=== PATIENT | female | born 1980 | race Caucasian/White ===

== ENCOUNTER → 2022-12-21 | Outpatient (CLI) | payer BC ==
[~2022-12-21] MED LIST: PROP60TA14 PO; XELJ5TAB PO
[2022-12-21 09:38] VITALS: BP 130/82
== END ==
LOC: M WHCPRO 08:40
PROVIDERS: ATTEND Surgery
DX: C50.212 Malignant neoplasm of upper-inner quadrant of left female breast (principal); R92.8 Other abnormal and inconclusive findings on diagnostic imaging of breast; N63.22 Unspecified lump in the left breast, upper inner quadrant
CPT/HCPCS: 19083; 77065; 88305; G0279

== ENCOUNTER → 2022-12-27 | Outpatient (CLI) | payer BC ==
[~2022-12-27] MED LIST changes: +PROHANCE 279.3MG/ML 15ML VIAL As Ordered ONE
== END ==
LOC: M RAD 15:25
PROVIDERS: ATTEND Surgery
DX: C50.912 Malignant neoplasm of unspecified site of left female breast (principal); R92.8 Other abnormal and inconclusive findings on diagnostic imaging of breast; N60.19 Diffuse cystic mastopathy of unspecified breast
CPT/HCPCS: A9576; C8908

== ENCOUNTER → 2023-01-03 | Outpatient (CLI) | payer BC ==
[~2023-01-03] MED LIST changes: -PROHANCE 279.3MG/ML 15ML VIAL As Ordered ONE
== END ==
LOC: M WHC 13:20
PROVIDERS: ATTEND Surgery
DX: R92.8 Other abnormal and inconclusive findings on diagnostic imaging of breast (principal)

== ENCOUNTER 2023-01-24 06:39 | Observation (INO) | payer BC ==
[~2023-01-24] VITALS: Ht 162.6 cm; Wt 81.8 kg
[~2023-01-24 06:39] MED LIST changes: +BUSP10TA PO; +PAXI20TA30 PO; +[UNRECOGNIZED DRUG - CODE] PO
[2023-01-24] MEDS ORDERED: LR 1,000 ML IV SCH (07:25)
[2023-01-24] MEDS ORDERED: ceFAZolin SOD 2 GM in IV 1 EA IV ONE (07:40)
[2023-01-24] MEDS ORDERED: HEPARIN SOD (PORCINE) 5000UNITS/ML 1ML VIAL/SYRINGE SQ ONE (07:40)
[2023-01-24] MEDS ORDERED: ACETAMINOPHEN 1000MG 100ML IV BAG As Ordered ONE (09:43)
[2023-01-24] MEDS ORDERED: ONDANSETRON 4MG 2ML VIAL As Ordered ONE ×2 (10:32→15:17)
[2023-01-24] MEDS ORDERED: LIDOCAINE 2% 100MG/5ML SDV (FOR ANES.) As Ordered ONE (10:32)
[2023-01-24] MEDS ORDERED: MIDAZOLAM INJ 2MG/2ML VIAL As Ordered ONE (10:32)
[2023-01-24] MEDS ORDERED: fentaNYL 100 MCG/2 ML INJECTION As Ordered ONE (10:32)
[2023-01-24] MEDS ORDERED: propofoL 200 MG/20 ML VIAL As Ordered ONE (10:32)
[2023-01-24] MEDS ORDERED: dexmedeTOMIDine (4MCG/ML)200MCG/50ML BTL (PRECEDEX) As Ordered ONE (10:32)
[2023-01-24] MEDS ORDERED: ROCURONIUM BROMIDE 50MG/5ML VIAL As Ordered ONE (10:32)
[2023-01-24] MEDS ORDERED: ePHEDrine SULFATE 25 MG/5 ML(5MG/ML) SYRINGE As Ordered ONE ×2 (10:34→12:31)
[2023-01-24] MEDS ORDERED: HYDROmorphone HCL 2MG/ML 1ML VIAL As Ordered ONE (11:03)
[2023-01-24] MEDS ORDERED: GLYCOPYRROLATE INJ 0.2 MG/ML 2 ML VIAL As Ordered ONE (11:10)
[2023-01-24] MEDS ORDERED: SUGAMMADEX SODIUM 500 MG/5 ML VIAL (BRIDION) As Ordered ONE (12:03)
[2023-01-24] MEDS ORDERED: ceFAZolin 2 GM/D5W 50 ML IV BAG As Ordered ONE (14:40)
[2023-01-24] MEDS ORDERED: MORPHINE 2 MG/ML 1ML VIAL IV PRN ×2 (15:20→15:50)
[2023-01-24] MEDS ORDERED: ONDANSETRON 4MG 2ML VIAL IV PRN ×2 (15:20→15:50)
[2023-01-24] MEDS ORDERED: fentaNYL 100 MCG/2 ML INJECTION IV PRN (15:50)
[2023-01-24] MEDS ORDERED: oxyCODONE 5MG TAB PO PRN (15:50)
[2023-01-24] MEDS: LR 1,000 ML IV SCH ×2 (16:09→18:28)
[2023-01-24] MEDS: traMADol 50 MG TAB PO PRN ×2 (16:47→22:45)
[2023-01-24 17:37] VITALS: BP 137/80; TEMP 98.6; O2SAT 96
[2023-01-24 18:21] VITALS: BP 118/73; TEMP 98.7; O2SAT 94
[2023-01-24 18:25] VITALS: BP 129/69; TEMP 97.3; O2SAT 97
[2023-01-24] MEDS: ceFAZolin SOD 2 GM in IV 1 EA IV SCH (18:29)
[2023-01-24] MEDS: ACETAMINOPHEN TAB 650MG DOSE (2X325MG) PO PRN (19:30)
[2023-01-24 20:08] VITALS: BP 118/69; TEMP 98.1; O2SAT 95
[2023-01-24 21:12] VITALS: BP 115/67; TEMP 98.2; O2SAT 94
[2023-01-24 22:06] VITALS: BP 113/66; TEMP 98.2; O2SAT 94
[2023-01-24] MEDS: HEPARIN SOD (PORCINE) 5000UNITS/ML 1ML VIAL/SYRINGE SQ SCH (22:45)
[2023-01-25 02:02] VITALS: BP 110/63; TEMP 98.4; O2SAT 91
[2023-01-25] MEDS: ceFAZolin SOD 2 GM in IV 1 EA IV SCH ×2 (03:35→11:04)
[2023-01-25] MEDS: HEPARIN SOD (PORCINE) 5000UNITS/ML 1ML VIAL/SYRINGE SQ SCH (05:49)
[2023-01-25 05:50] VITALS: BP 117/70; TEMP 98.6; O2SAT 96
[2023-01-25] MEDS: traMADol 50 MG TAB PO PRN ×2 (05:50→13:48)
[2023-01-25 10:46] VITALS: BP 102/56; TEMP 98.6; O2SAT 97
[2023-01-25] MEDS: ACETAMINOPHEN TAB 650MG DOSE (2X325MG) PO PRN (11:05)
[2023-01-25] MEDS: LR 1,000 ML IV SCH (11:20)
[2023-01-25] MEDS ORDERED: TRAM50TA2 PO (12:51)
== END 2023-01-25 14:00 | disposition home or self-care (01) ==
LOC: M SDC 06:39 → M MS5PR 06:40
PROVIDERS: ADMIT Surgery; ATTEND Surgery
DX: C50.912 Malignant neoplasm of unspecified site of left female breast (principal); R92.2 Inconclusive mammogram; I10 Essential (primary) hypertension; D64.9 Anemia, unspecified; G47.33 Obstructive sleep apnea (adult) (pediatric); Z79.899 Other long term (current) drug therapy; Z91.89 Other specified personal risk factors, not elsewhere classified; F41.9 Anxiety disorder, unspecified; F32.A Depression, unspecified
CPT/HCPCS: 19303; 36415; 38525; 78195; 81025; 86850; 86900; 86901; 88307; 96365; 96366; 96372; A9520; C9290; J0131; J0690; J1100; J1170; J2250; J2405; J3010; S0020

== ENCOUNTER → 2023-02-20 | Outpatient (CLI) | payer BC ==
[~2023-02-20] MED LIST changes: +TRAM50TA2 PO
== END ==
LOC: M CARPUL 11:33
PROVIDERS: ATTEND Internal Medicine Medical Oncology
DX: I42.7 Cardiomyopathy due to drug and external agent (principal); C50.912 Malignant neoplasm of unspecified site of left female breast

== ENCOUNTER → 2023-03-06 | Outpatient (CLI) | payer BC ==
[~2023-03-06] VITALS: Ht 162.6 cm; Wt 79.0 kg
[~2023-03-06] MED LIST changes: +LIDOCAINE 1% MDV 20ML VIAL As Ordered ONE; +MIDAZOLAM INJ 2MG/2ML VIAL As Ordered ONE; +NS 1,000 ML IV SCH; +ceFAZolin 2 GM/D5W 50 ML IV BAG As Ordered ONE; +ceFAZolin SOD 2 GM in IV 1 EA IV ONE; +diphenhydrAMINE 50MG/ML VIAL As Ordered ONE; +fentaNYL 100 MCG/2 ML INJECTION As Ordered ONE
[2023-03-06 13:06] VITALS: TEMP 98.1
[2023-03-06 17:45] VITALS: BP 129/66; O2SAT 100
== END ==
LOC: M IRPRO 12:40
PROVIDERS: ATTEND Internal Medicine Medical Oncology
DX: C50.919 Malignant neoplasm of unspecified site of unspecified female breast (principal)
CPT/HCPCS: 36561; 99152; 99153; C1769; C1788; C1894; J0690; J2250; J3010

== ENCOUNTER → 2023-05-09 | Outpatient (REF) | payer BC ==
[~2023-05-09] MED LIST changes: -LIDOCAINE 1% MDV 20ML VIAL As Ordered ONE; -MIDAZOLAM INJ 2MG/2ML VIAL As Ordered ONE; -NS 1,000 ML IV SCH; -ceFAZolin 2 GM/D5W 50 ML IV BAG As Ordered ONE; -ceFAZolin SOD 2 GM in IV 1 EA IV ONE; -diphenhydrAMINE 50MG/ML VIAL As Ordered ONE; -fentaNYL 100 MCG/2 ML INJECTION As Ordered ONE
== END ==
LOC: M SFHCWAGY 17:44
PROVIDERS: ATTEND Nurse Practitioner Family
DX: Z12.4 Encounter for screening for malignant neoplasm of cervix (principal)
CPT/HCPCS: 87624; G0123

== ENCOUNTER 2024-03-11 12:55 | Observation (INO) | payer BC ==
[~2024-03-11] VITALS: Ht 162.6 cm; Wt 78.4 kg
[~2024-03-11 12:55] MED LIST changes: +CLAR10CA3 PO; +TAMO20TA8 PO; +UNRESOLVED CLARIFICATION ENTRY XX SCH
[2024-03-11] MEDS ORDERED: LR 1,000 ML IV SCH (13:10)
[2024-03-11 13:25] LABS: HEMATOCRIT 34.3 % (36.0-47.0); HEMOGLOBIN 11.3 g/dl (12.0-15.5); MEAN CORPUSCULAR HEMOGLOBIN 28.9 pg (27.0-33.0); MEAN CORPUSCULAR HGB CONC 32.9 g/dl (32.0-36.5); MEAN CORPUSCULAR VOLUME 87.7 fl (80.0-96.0); PLATELET COUNT, AUTOMATED 160 10^3/uL (150-450); RED BLOOD COUNT 3.91 10^6/uL (4.00-5.40); WHITE BLOOD COUNT 5.2 10^3/uL (4.0-10.0)
[2024-03-11] MEDS ORDERED: propofoL 200 MG/20 ML VIAL As Ordered ONE (14:07)
[2024-03-11] MEDS ORDERED: fentaNYL 250 MCG/5 ML INJECTION As Ordered ONE (14:07)
[2024-03-11] MEDS ORDERED: MIDAZOLAM INJ 2MG/2ML VIAL As Ordered ONE (14:07)
[2024-03-11] MEDS ORDERED: ONDANSETRON 4MG 2ML VIAL As Ordered ONE (14:08)
[2024-03-11] MEDS ORDERED: SUGAMMADEX SODIUM 500 MG/5 ML VIAL (BRIDION) As Ordered ONE (14:08)
[2024-03-11] MEDS ORDERED: LIDOCAINE 2% 100MG/5ML SDV (FOR ANES.) As Ordered ONE (14:08)
[2024-03-11] MEDS ORDERED: ROCURONIUM BROMIDE 50MG/5ML VIAL As Ordered ONE (14:08)
[2024-03-11] MEDS ORDERED: KETOROLAC 60MG 2ML VIAL As Ordered ONE (14:17)
[2024-03-11] MEDS ORDERED: dexmedeTOMIDine (4MCG/ML)200MCG/50ML BTL (PRECEDEX) As Ordered ONE (14:56)
[2024-03-11] MEDS: ceFAZolin SOD 2 GM in IV 1 EA IV ONE (15:10)
[2024-03-11] MEDS ORDERED: ePHEDrine SULFATE 25 MG/5 ML(5MG/ML) SYRINGE As Ordered ONE (15:34)
[2024-03-11] MEDS ORDERED: oxyCODONE 5MG TAB PO PRN (16:50)
[2024-03-11] MEDS ORDERED: fentaNYL 100 MCG/2 ML INJECTION IV PRN (16:50)
[2024-03-11] MEDS ORDERED: ONDANSETRON 4MG 2ML VIAL IV PRN ×2 (16:50→17:35)
[2024-03-11] MEDS: LR 1,000 ML IV SCH ×2 (16:50→21:42)
[2024-03-11] MEDS ORDERED: PERCOCET 5MG/325MG TAB PO PRN (17:35)
[2024-03-11] MEDS: HYDROMORPHONE HCL 0.5 MG/ 0.5 ML SYRINGE IV PRN (17:47)
[2024-03-11] MEDS: KETOROLAC 30 MG/ML 1ML VIAL IV PRN (19:03)
[2024-03-11 19:10] VITALS: BP 141/80; TEMP 98.7; O2SAT 97
[2024-03-11 19:40] VITALS: BP 137/77; TEMP 98; O2SAT 98
[2024-03-11 20:10] VITALS: BP 125/83; TEMP 98.8; O2SAT 96
[2024-03-11] MEDS: DOCUSATE SODIUM 100MG CAPSULE PO SCH (20:53)
[2024-03-11 21:10] VITALS: BP 114/65; TEMP 97.9; O2SAT 96
[2024-03-11 22:10] VITALS: BP 123/67; TEMP 98.3; O2SAT 97
[2024-03-11 23:10] VITALS: BP 110/67; TEMP 97.5; O2SAT 94
[2024-03-12 00:10] VITALS: BP 112/67; TEMP 98.6; O2SAT 96
[2024-03-12 04:00] VITALS: BP 135/73; TEMP 97.3; O2SAT 98
[2024-03-12] MEDS ORDERED: COLA100C5 PO (07:24)
[2024-03-12] MEDS ORDERED: IBUP-1022 PO (07:24)
[2024-03-12 08:00] VITALS: BP 124/65; TEMP 97.2; O2SAT 98
[2024-03-12 08:09] LABS: HEMATOCRIT 28.2 % (36.0-47.0); HEMOGLOBIN 9.4 g/dl (12.0-15.5); MEAN CORPUSCULAR HEMOGLOBIN 29.6 pg (27.0-33.0); MEAN CORPUSCULAR HGB CONC 33.3 g/dl (32.0-36.5); MEAN CORPUSCULAR VOLUME 88.7 fl (80.0-96.0); PLATELET COUNT, AUTOMATED 136 10^3/uL (150-450); RED BLOOD COUNT 3.18 10^6/uL (4.00-5.40); WHITE BLOOD COUNT 10.5 10^3/uL (4.0-10.0)
== END 2024-03-12 11:15 | disposition home or self-care (01) ==
LOC: M SDC 12:55 → M RR INP 17:32 → M PED 18:05
PROVIDERS: ADMIT Specialist; ATTEND Specialist
DX: N92.0 Excessive and frequent menstruation with regular cycle (principal); N73.6 Female pelvic peritoneal adhesions (postinfective); N80.9 Endometriosis, unspecified; C50.912 Malignant neoplasm of unspecified site of left female breast; Z17.0 Estrogen receptor positive status [ER+]
CPT/HCPCS: 36415; 58571; 85027; 86850; 86900; 86901; 88307; 96361; 96374; 96376; J0665; J0690; J1100; J1170; J1885; J2250; J2405; J3010; S2900